=== PATIENT | male | born 1940 | race Caucasian/White ===

== ENCOUNTER → 2017-02-09 | Outpatient (CLI) | payer OTHER ==
[~2017-02-09] MED LIST: ALLOPURINOL 10100 M1 PO; ATORVASTATIN CA40 MG PO; FENOFIBRIC ACI135 MG PO; LEVOTHYROXINE0.05 MG PO; METOPROLOL SUCC50 MG PO; NORCO 5-325 TA1 EACH PO; PACERONE 200 M200 MG PO; TOPROL XL50 MG PO; VIAGRA100 MG PO
== END ==
LOC: CAT 12:39
DX: I25.10 Atherosclerotic heart disease of native coronary artery without angina pectoris (principal); R91.1 Solitary pulmonary nodule; R91.8 Other nonspecific abnormal finding of lung field; R93.8 Abnormal findings on diagnostic imaging of other specified body structures

== ENCOUNTER → 2017-04-18 | Outpatient (CLI) | payer OTHER | LOC: HYPER 08:55 | DX: S81.802A Unspecified open wound, left lower leg, initial encounter (principal); E78.5 Hyperlipidemia, unspecified; I10 Essential (primary) hypertension; M10.9 Gout, unspecified; Z87.01 Personal history of pneumonia (recurrent); Z85.46 Personal history of malignant neoplasm of prostate; Z86.73 Personal history of transient ischemic attack (TIA), and cerebral infarction without residual deficits; Z95.0 Presence of cardiac pacemaker; Z95.1 Presence of aortocoronary bypass graft; Z87.891 Personal history of nicotine dependence; Z72.89 Other problems related to lifestyle; X58.XXXA Exposure to other specified factors, initial encounter; Y93.89 Activity, other specified; Y92.89 Other specified places as the place of occurrence of the external cause; Y99.8 Other external cause status ==

== ENCOUNTER 2017-04-22 12:19 | Inpatient (IN) | payer OTHER ==
[~2017-04-22] VITALS: Ht 180.3 cm; Wt 64.4 kg
--- NOTE | ~2017-04-22 | D ---
[facility] [place] [address] DISCHARGE SUMMARY Name: GRAHAM FRIAS Room #: 542-P DIS IN M.R.#: [id number] Admission: 04/22/17 Attend Phys: Jordan Pena MD Discharge: 04/23/17 Date of : 42 Report #: [id number] THIS REPORT FOR: //name// CC: Jordan Ramírez DATE OF SERVICE: 04/23/2017 The patient is admitted to the hospital on 04/22/2017 and discharged from the hospital on 04/23/2017. HISTORY OF PRESENT ILLNESS: The patient is a 76-year-old man with history of atrial fibrillation, on chronic anticoagulation, who sustained right leg hematoma. He was treated as an outpatient, but he did not get better. Please refer to the admission H and P for details. HOSPITALIZATION COURSE: The patient was hospitalized at [facility]. He was seen by a surgeon, and he had incision and drainage. After procedure, he did well. His white count on admission was 15.9, and today, it is 11.1. The patient feels well, and has no complaints. Case was discussed with infectious disease specialist. The patient can be treated with oral antibiotics, and wound cultures can be followed as an outpatient at wound care clinic. Currently, the patient's condition is stable and acceptable, as documented in the patient's chart. DISCHARGE DIAGNOSIS: Left leg hematoma and cellulitis, as a result of injury. Status post I and D on 04/22/2017. Clinically much better. SECONDARY DIAGNOSES: Include atrial fibrillation, status post pacemaker placement, coronary artery disease, hypertension, gout, hypothyroidism. DISCHARGE MEDICATIONS: Same as preadmission medications. Please refer to the medication reconciliation list. In addition, the patient will hold Eliquis for 10 days per manufacturing development engineer's recommendation, and he will take 10 days of Keflex. DISCHARGE INSTRUCTIONS: Wound care per general surgeon's and wound care team recommendations. FOLLOWUP PLAN: [facility] [address] [place] [address] DISCHARGE SUMMARY Name: GRAHAM FRIAS DUNLOW Room #: 542-P [facility]#: [id number] Admission: 04/22/17 Attend Phys: Jordan Pena MD Discharge: 04/23/17 Date of : 42 Report #: [id number] 1. Follow up in the Wound Care Clinic as advised. 2. Follow up with the primary care physician and manufacturing development engineer as planned. <ELECTRONICALLY SIGNED> By: Conor Solis MD 04/25/17 1807 1055 1229 Conor Solis MD /nt
--- NOTE | ~2017-04-22 | S ---
[facility] [place] [address] SURGICAL PATH RPT PROCEDURE Name: PRAKASH PIZANO Room #: 542-P DIS IN M.R.#: [id number] Admission: 04/22/17 Date of : 42 Discharge: 04/23/17 Report #: [id number] Path Case #: [id number] PATHOLOGY REPORT COLLECTION DATE: 04/22/2017 RECEIVED DATE: 04/23/2017 SUBMITTING PHYS: Dr. Amadou Ramos OTHER PHYS: Dr. Jordan Ramírez SPECIMEN(S) RECEIVED: A.Hematoma skin and subcutaneous tissue * * * * * * * * * * * * FINAL DIAGNOSIS: Clotted blood, skin and underlying subcutaneous tissue "hematoma, skin and subcutaneous tissue", excision: - Skin with epidermal necrosis and underlying hematoma with recent and remote hemorrhage. - There is no evidence of malignancy. PATHOLOGIST: Carlos Aguilar M.D. REPORT ELECTRONICALLY SIGNED BY: Carlos Aguilar M.D. DATE/TIME: 04/25/2017 12:24 * * * * * * * * * * * * GROSS PATHOLOGY: The specimen is received in formalin labeled "Prakash Pizano, hematoma skin and subcutaneous tissue". Received is a segment of red-patiño black, firm soft tissue with possible attached skin measuring 4.3 x 4.0 x 0.5 cm in greatest dimensions. The specimen is submitted representatively in cassette A1. (CAA; 04/24/2017) CLINICAL HISTORY: Left leg wound INITIAL CPT CODE(S): A; 70654 Professional services performed by [facility] at [facility] [address] [place] [address] Technical services performed by [facility] at [address] [place] [address]. [facility] [address] [place] [address] SURGICAL PATH RPT PROCEDURE Name: PRAKASH PIZANO JADYN Room #: 542-P DIS IN M.R.#: [id number] Admission: 04/22/17 Date of : 42 Discharge: 04/23/17 Report #: [id number] Path Case #: [id number] [facility] [address] [address] PHONE: [phone] DIRECTOR: Jose Angel Rivera M.D. * * * END OF REPORT * * *
--- NOTE | ~2017-04-22 | HC ---
[facility] [place] [address] CONSULTATION Name: GRAHAM FRIAS Room #: 542-P [facility] IN M.R.#: [id number] Admission: 04/22/17 Attend Phys: Jordan Pena MD Discharge: 04/23/17 Date of : 42 Report #: [id number] THIS REPORT FOR: //name// CC: Jordan Ramírez REASON FOR VISIT: Paroxysmal ventricular tachycardia. HISTORY OF PRESENT ILLNESS: The patient is a nice gentleman with a moderate ischemic cardiomyopathy with remote bypass surgery with a left internal mammary to the LAD, right internal mammary to the marginal branch and a vein graft to the posterior descending. His history is complicated and includes squamous cell carcinoma of the tongue for which he underwent definitive chemotherapy and radiation therapy. He also has a history of symptomatic sustained monomorphic ventricular tachycardia for which he underwent AICD placement and has been maintained on beta blockade and low dose amiodarone. He has had paroxysms of atrial fibrillation, which have remained asymptomatic and has been on apixaban. Last Sunday, he was helping a friend repair a door and this fell on his leg, creating a laceration and hematoma. He was seen in the office on Sunday where the hematoma was evacuated. He then presented on Sunday with increasing pain and erythema around the site. He underwent further incision and drainage yesterday. He denies chest pain, pressure or ischemic type symptoms. There have been no symptoms to suggest ICD discharge. His Eliquis has been put on hold. MEDICATIONS: Include amiodarone 200 mg daily, Toprol-XL 50 mg daily, atorvastatin 40 mg daily, levothyroxine 0.05 mg daily, allopurinol 100 mg daily. PAST MEDICAL HISTORY: Medical records have been reviewed and include a history of cleft palate, ankle surgery, bypass surgery in 2000, sustained monomorphic ventricular tachycardia, COPD with prior tobacco dependency. SOCIAL HISTORY: He is . He is a former smoker. His is undergoing treatment for a recently identified melanoma. FAMILY HISTORY: Notable for premature coronary disease. REVIEW OF SYSTEMS: All systems negative except as that noted above. PHYSICAL EXAMINATION: GENERAL: A pleasant gentleman who is alert and in no distress. VITAL SIGNS: Blood pressure is 130/55, heart rate is 60 and regular. He is afebrile. HEENT: There are neither xanthelasma, subcutaneous xanthomata, oral mucosal or digital cyanosis or kyphoscoliosis present. CHEST: Clear to auscultation and percussion. CARDIOVASCULAR: Regular rate and rhythm with normal S1, S2. [address] [address] CONSULTATION Name: GRAHAM FRIAS Room #: 542-P [facility] IN M.R.#: [id number] Admission: 04/22/17 Attend Phys: Jordan Pena MD Discharge: 04/23/17 Date of : 42 Report #: [id number] ABDOMEN: Soft and nontender. EXTREMITIES: Reveal a left leg hematoma with surrounding cellulitis. NEUROLOGIC: He is alert with a nonfocal exam. LABORATORY DATA: Sodium is 139, potassium is 3.8, creatinine is 0.7. White count 11.1, hemoglobin 9.8, hematocrit 29 and platelet count 270. RADIOLOGICAL DATA: Chest x-ray is normal. Lower extremity arterial Doppler demonstrates mild diffuse left SFA atherosclerotic disease. IMPRESSION: 1. Left leg traumatic injury with hematoma and overlying cellulitis. 2. Moderate ischemic cardiomyopathy. 3. History of paroxysmal ventricular tachycardia with prior ICD therapy. 4. Paroxysmal atrial fibrillation. 5. Moderate carotid disease. 6. Tongue cancer with prior definitive chemotherapy and radiation therapy. 7. History of prostate cancer. RECOMMENDATIONS: 1. Discontinue Eliquis, probably for several weeks until leg wound heals. 2. ID consultation has been ordered. 3. Resume usual cardiovascular medicines. I have discussed these issues with the patient and his . Thank you for asking me to participate in his care. <ELECTRONICALLY SIGNED> By: Paramjit Coronado MD, FACC 04/26/17 0831 0809 0857 Paramjit Coronado MD, FACC /nt
--- NOTE | ~2017-04-22 | HC ---
[facility] [place] [address] CONSULTATION Name: GRAHAM FRIAS Room #: 542-P [facility] IN M.R.#: [id number] Admission: 04/22/17 Attend Phys: Jordan Pena MD Discharge: 04/23/17 Date of : 42 Report #: [id number] THIS REPORT FOR: //name// CC: Jordan Ramírez DATE OF SERVICE: 04/23/2017 CHIEF COMPLAINT: Surgical wound to the right lower leg following evacuation and debridement of a subcutaneous hematoma. HISTORY OF PRESENT ILLNESS: The patient is a 76-year-old male patient with whom I am familiar from previous outpatient evaluation. He sustained an injury to his left lower extremity after slipping on some steps. He currently is taking Eliquis. He presented to the wound clinic. We saw him, he had a very large tense hematoma. Incision and drainage procedure was performed where a large amount of clot was evacuated. He was sent home with local wound care. Unfortunately, developed some necrosis along the wound edges and increasing redness and pain, presented to the Emergency Department for evaluation and treatment, was noted to have cellulitis of the lower extremity. He was admitted to the hospital for intravenous antibiotic therapy and did undergo surgical debridement by Dr. Amadou Ramos. He is resting comfortably in his room. He does note that he needs to leave the hospital as soon as possible due to the fact that his is undergoing a surgical procedure. The patient's Eliquis at this time has been held. MEDICATIONS: Include amiodarone, metoprolol, hydrocodone, atorvastatin, levothyroxine, allopurinol, Eliquis. PAST MEDICAL HISTORY: Positive for history of ischemic cardiomyopathy with remote bypass surgery, history of paroxysmal ventricular tachycardia. He has an implanted AICD. FAMILY HISTORY: Notable for premature coronary artery disease. SOCIAL HISTORY: He is . He is a former smoker. REVIEW OF SYSTEMS: Negative except that as mentioned above in the history of present illness. PHYSICAL EXAMINATION: VITAL SIGNS: At this time include pulse 72, temperature 97.9, respiration of 20, blood pressure 130/62. GENERAL: This is a somewhat thin-appearing male patient who appears to be in no distress. HEENT: Normocephalic. Nodes were clear. [address] [address] CONSULTATION Name: GRAHAM FRIAS Room #: 542-P [facility] IN M.R.#: [id number] Admission: 04/22/17 Attend Phys: Jordan Pena MD Discharge: 04/23/17 Date of : 42 Report #: [id number] NECK: Supple. LUNGS: Clear. ABDOMEN: Soft. EXTREMITIES: Demonstrate erythema involving the left lower leg below the knee. Edema, however, is improved since having seen him in the office. The surgical wound is relatively clean. There is still some oozing. Otherwise, the bases shows some evidence of granulation tissue, does not appear to be any retained hematoma at this time. CLINICAL IMPRESSION: 1. Surgical wound, left lower extremity following evacuation and debridement of a left lower extremity hematoma. 2. History of coronary artery disease with automatic implantable cardioverter-defibrillator. 3. Cellulitis, left lower extremity. RECOMMENDATIONS: At this point in time, the patient will be continued on intravenous antibiotic therapy here. He feels that it is urgent, however, that he leave the hospital within the next day in order to be present for his 's surgery. We will recommend a moist gauze dressing at this point in time. Instructions have been provided to him and his . I do appreciate being asked to see the patient in consultation. <ELECTRONICALLY SIGNED> By: Henrik Eden MD 04/24/17 1804 1143 1757 Henrik Eden MD /nt
--- NOTE | ~2017-04-22 | O ---
[facility] [place] [address] OPERATIVE REPORT Name: GRAHAM FRIAS Room #: 542-P ADM IN M.R.#: [id number] Admission: 04/22/17 Attend Phys: Jordan Pena MD Discharge: Date of : 42 Report #: [id number] THIS REPORT FOR: //name// CC: Jordan Ramírez DATE OF SERVICE: 04/22/2017 DATE OF SERVICE: 04/22/2017. PREOPERATIVE DIAGNOSES: Contusion of left leg with hematoma and cellulitis. POSTOPERATIVE DIAGNOSES: Contusion of left leg with hematoma and cellulitis. PROCEDURE: Incision and drainage with evacuation of hematoma, left anterior calf; wound cultures. BUSINESS ASSOCIATE: Amadou Ramos MD ANESTHESIA: General sedation, local 1% lidocaine with epinephrine injection, local Marcaine 0.5% with epinephrine injection. INDICATION The patient is a 76-year-old gentleman who 6 days ago, sustained blunt trauma to his leg. He is on Eliquis. He developed a hematoma with pressure. He was seen in the wound care center at [facility] by Dr. Eden, and hematoma was incised, partially evacuated. The patient had increasing pain, tenderness, swelling and some redness, and was admitted to the emergency room. The area around the hematoma appeared somewhat cellulitic and the surface of the hematoma was dry, hard and crusted. Informed consent was obtained for incision and drainage and evacuation of the hematoma. PROCEDURE DESCRIPTION: The patient in the supine position on the operating table. Smooth induction of intravenous sedation anesthesia. Left leg was sterilely prepared and draped in the usual fashion. Lidocaine 1% with epinephrine locally injected for pain control. Using a 15 blade scalpel, the hard crusted surface of the hematoma was incised at its border with viable skin. The hard crusted surface of the hematoma was excised. Wound cultures were taken from the central hematoma. Hematoma was organizing and was quite firm. A good amount of the hematoma was removed to the point where the wound had a depth of 1.5 cm. The entire wound measured 4.5 x 3.5 cm. Hemostasis was complete. Hematoma was removed to the point where bleeding might be encountered. The deeper portion of the hematoma appeared uninfected. There was no evidence of pus or purulence. Wound was irrigated. Wound was packed with sterile saline gauze. [address] [address] OPERATIVE REPORT Name: GRAHAM FRIAS IDA Room #: 542-P [facility] IN M.R.#: [id number] Admission: 04/22/17 Attend Phys: Jordan Pena MD Discharge: Date of : 42 Report #: [id number] The patient . Continue IV antibiotics, Ancef. Maybe a candidate for wound VAC dressing once cellulitis has resolved. By: 1752 0041 Amadou Ramos MD /nt
--- NOTE | ~2017-04-22 | HC ---
[facility] [place] [address] CONSULTATION Name: GRAHAM FRIAS Room #: 542-P [facility] IN M.R.#: [id number] Admission: 04/22/17 Attend Phys: Jordan Pena MD Discharge: 04/23/17 Date of : 42 Report #: [id number] THIS REPORT FOR: //name// CC: Jordan Ramírez DATE OF SERVICE: 04/23/2017 REASON FOR CONSULTATION: I was asked to evaluate concerning left calf hematoma and associated cellulitis with a history of left fibular fracture status post ORIF about a year ago with plate on the left lower leg. HISTORY OF PRESENT ILLNESS: A week ago, he suffered blunt trauma to the left leg when he was working on a home repair; dorsally down his calf. Subsequent large hematoma. Seen by Dr. Eden earlier last week where he diagnosed a hematoma. This was incised and partially drained on 04/18/2017. Subsequently, developed increased erythema. Hospitalized and was taken to the operating room by Dr. Ramos where evacuation of hematoma was performed. Cultures remain pending. The surgery was yesterday. Treated with IV antibiotics postoperatively. He is afebrile and hemodynamically stable. He feels well with minimal discomfort. ALLERGIES: None known. MEDICATIONS: As noted on his MAR, which were reviewed. PAST MEDICAL HISTORY: Hypertension, permanent pacemaker defibrillator, carcinoma in the base of the tongue, fractured left tibia and left ankle, coronary artery disease, coronary artery bypass grafting. REVIEW OF SYSTEMS: No cardiopulmonary, GI or complaints. FAMILY HISTORY AND SOCIAL HISTORY: Otherwise, noncontributory. The patient was on anticoagulation at the time of his injury. This has subsequently been held. PHYSICAL EXAMINATION: VITAL SIGNS: He is afebrile, hemodynamically stable. GENERAL: He is alert and cooperative and pleasant, in no acute distress. LUNGS: Decreased breath sounds posteriorly. HEART: Regular without murmur. ABDOMEN: Soft, nontender, no hepatosplenomegaly or mass. EXTREMITIES: Left lower extremity has a left lower leg ecchymosis, fairly large incision on the lateral calf region, which was packed. Mild surrounding erythema. 1+ edema in the lower leg. Pulses in the foot were adequate. Sensation in the foot was adequate. [address] [address] CONSULTATION Name: GRAHAM FRIAS Room #: 542-P [facility] IN .R.#: [id number] Admission: 04/22/17 Attend Phys: Jordan Pena MD Discharge: 04/23/17 Date of : 42 Report #: [id number] LABORATORY STUDIES: Blood cultures are negative to date. I am awaiting cultures of his wound. Hemoglobin 9.8, WBC 11, platelet count 270,000. Sodium 139, potassium 3.8, bicarbonate of 27, creatinine 0.7. Arterial studies of left lower leg shows mild left SFA atherosclerosis. IMPRESSION: A 76-year-old with left calf hematoma, surrounding erythema, suspect much of this is reactive in nature. He does have underlying hardware in the fibula, but the hematoma was above the fascial planes in the soft tissues. PLAN: Would recommend continuing dressing change, leg elevation, holding his anticoagulation and will continue cephalexin for the next 7-10 days, as he follows up with wound care. I discussed the dressing change, compression and elevation with the patient and his . <ELECTRONICALLY SIGNED> By: Karan Fofana MD 04/25/17 0905 1053 1632 Karan Fofana MD /nt
--- NOTE | ~2017-04-22 | HC ---
[facility] [place] [address] CONSULTATION Name: GRAHAM FRIAS Room #: 542-P ADM IN M.R.#: [id number] Admission: 04/22/17 Attend Phys: Jordan Pena MD Discharge: Date of : 42 Report #: [id number] THIS REPORT FOR: //name// CC: Jordan Ramírez DATE OF SERVICE: 04/22/2017 WOUND CARE CONSULTATION REASON FOR CONSULTATION: Hematoma of left leg with pain and cellulitis. HISTORY: The patient is a 76-year-old gentleman who has a history of cerebrovascular accident. He is on Eliquis. He has a history of cardiac arrhythmias and has an implanted pacemaker. He has a history of cancer at the base of the tongue with surgical resection, possible radiation therapy. He also has a history of left fibula fracture 20 years ago and then 1 year ago left tibia fracture repaired by Dr. Con Clarke. The patient approximately 6 or 7 days ago sustained blunt trauma to his left leg when he was doing some work and a door of artificial wood hit his left leg. There was no break of the skin; however, the patient had a large lump or hematoma under the skin. The patient was seen in [facility] by Dr. Henrik Eden on 04/18/2017 and the hematoma was incised and partially drained. The patient had some pain and discomfort 48 hours later. The patient had a call in to Dr. Peterson on Sunday; however, he did not return Dr. Peterson' call. The patient experienced some increasing pain, swelling, redness and tenderness of the left leg, prompting him to come to the Emergency Room at [facility] today, where he was seen by the Emergency physician, Dr. Estrella. The patient was admitted to the hospitalist service on IV antibiotics, clindamycin. Wound care is now consulted. PAST MEDICAL HISTORY: 1. Hypertension. 2. The patient is nondiabetic. 3. History of cardiac arrhythmia with pacemaker. 4. History of carcinoma at the base of the tongue treated surgically. 5. History of fracture of the left tibia 1 year ago, repaired with surgical hardware by Dr. Clarke. 6. Coronary artery disease. PAST SURGICAL HISTORY: Coronary artery bypass grafting in 2000, [facility]. REVIEW OF SYSTEMS: He does have some pain with walking in the left leg. ALLERGIES: No known drug allergies. [address] [address] CONSULTATION Name: GRAHAM FRIAS Room #: 542-P [facility] IN .R.#: [id number] Admission: 04/22/17 Attend Phys: Jordan Pena MD Discharge: Date of : 42 Report #: [id number] HOME MEDICATIONS: Pacerone 200 mg 2 tablets p.o. twice a day, metoprolol 50 mg daily, hydrocodone, atorvastatin 40 mg daily, levothyroxine 0.05 mg daily, choline and allopurinol. PHYSICAL EXAMINATION: GENERAL: Shows a thin elderly gentleman who is alert and conversant. He does not appear septic. VITAL SIGNS: Temperature 37.5, pulse 77, respirations 18 and blood pressure 95/52. HEENT: Mucous membranes are moist. The patient has had head and neck surgery. LUNGS: Respirations are unlabored. ABDOMEN: Soft. EXTREMITIES: Exam showed a dark black discolored hematoma with incision and drainage site over the left mid lateral pretibial calf. There is edema of the left calf and mild surrounding erythema and generalized ecchymosis above and below the hematoma. Hematoma appears dry and crusted and tense. The area is tender. There is no obvious fluctuance. LABORATORY DATA: White blood count 15.9, hemoglobin 11.3 and hematocrit 33.8. Electrolytes: Sodium 135. Creatinine 0.9. IMPRESSION: 1. History of coronary artery disease, status post coronary bypass graft. 2. History of cerebrovascular accident. 3. History of arrhythmia with implanted pacemaker. 4. History of left tib-fib fracture with hardware. 5. Contusion with hematoma of the left calf with secondary cellulitis, possible infection. 6. Anticoagulation with Eliquis. PLAN: The patient has received intravenous clindamycin. We will start him on intravenous Ancef. The patient will be taken to the operating room today for incision and drainage and evacuation of the hematoma with excision of any nonviable skin or subcutaneous tissue. This would release the pressure and the hematoma allowed to drain. Cultures will be taken. The patient will remain hospitalized on IV antibiotics. By: 1645 0100 Amadou Ramos MD /nt
[2017-04-22 12:37] VITALS: BP 95/52
[2017-04-22 14:40] VITALS: BP 188/76
[2017-04-22 14:52] LABS: HEMATOCRIT 33.8 % (42.0-52.0); HEMOGLOBIN 11.3 gm/dL (14.0-18.0); MCH 31.3 pg (26.0-34.0); MCHC 33.4 g/dL (28.0-37.0); MCV 93.9 fL (80.0-100.0); PLATELET COUNT 295 thou/uL (150-400); RDW 13.6 % (10.5-14.5); WBC 15.9 thou/uL (4.0-11.0)
[2017-04-22 14:53] LABS: MANUAL DIFF YES
[2017-04-22 15:02] LABS: CALCIUM 9.1 mg/dL (8.5-10.1); CREATININE 0.9 mg/dL (0.7-1.3); POTASSIUM 4.8 mmol/L (3.5-5.1)
[2017-04-22 15:18] LABS: ALBUMIN 3.1 g/dL (3.4-5.0); TOTAL BILIRUBIN 0.9 mg/dL (<0.1-1.0); TOTAL PROTEIN 7.5 g/dL (6.4-8.2)
[2017-04-22 15:23] LABS: ABSOLUTE NEUTROPHILS 13.5 thou/uL (1.4-8.2); TOTAL CELL COUNT 100
[2017-04-22 15:40] VITALS: BP 171/70
[2017-04-22 19:30] VITALS: BP 166/62
[2017-04-22 20:00] VITALS: BP 160/62
[2017-04-22 23:40] VITALS: BP 134/55
[2017-04-23 04:21] LABS: HEMATOCRIT 29.7 % (42.0-52.0); HEMOGLOBIN 9.8 gm/dL (14.0-18.0); MCH 31.2 pg (26.0-34.0); MCV 94.3 fL (80.0-100.0); PLATELET COUNT 270 thou/uL (150-400); RBC 3.15 mil/uL (4.50-6.00); RDW 13.9 % (10.5-14.5); WBC 11.1 thou/uL (4.0-11.0)
[2017-04-23 04:25] LABS: MANUAL DIFF YES
[2017-04-23 05:28] LABS: CALCIUM 8.2 mg/dL (8.5-10.1); CREATININE 0.7 mg/dL (0.7-1.3)
[2017-04-23 05:29] LABS: POTASSIUM 3.8 mmol/L (3.5-5.1)
[2017-04-23 07:40] VITALS: BP 130/62
[2017-04-23 08:10] LABS: ABSOLUTE NEUTROPHILS 7.5 thou/uL (1.4-8.2); TOTAL CELL COUNT 100
[2017-04-23 08:11] LABS: ANISOCYTOSIS SLIGHT; POLYCHROMASIA OCCASIONAL
[2017-04-23] MEDS ORDERED: NORCO 5-325 TA1 EACH PO (10:58)
[2017-04-23] MEDS ORDERED: PACERONE 200 M200 M1 PO (10:58)
[2017-04-23] MEDS ORDERED: KEFLEX500 MG PO (10:58)
[2017-04-23 11:52] LABS: URINE BILIRUBIN NEGATIVE (Negative); URINE BLOOD NEGATIVE (Negative); URINE COLOR YELLOW; URINE GLUCOSE-RANDOM* NEGATIVE (Negative); URINE KETONES NEGATIVE (Negative); URINE LEUKOCYTES-REFLEX NEGATIVE (Negative); URINE PROTEIN (DIPSTICK) NEGATIVE (Negative); URINE SPECIFIC GRAVITY <= 1.005 (1.003-1.035)
[2017-04-23 14:17] VITALS: BP 130/62
== END 2017-04-23 15:25 | disposition home or self-care (01) | DRG 571 ==
LOC: ER 12:19 → 5S 14:32 → EROBS 14:34 → 5S 15:13
PROVIDERS: Emergency Medicine; Internal Medicine Endocrinology, Diabetes & Metabolism
PROC: 0JBP0ZZ Excision of Left Lower Leg Subcutaneous Tissue and Fascia, Open Approach (ICD-10-PCS; principal; 2017-04-22)
PROC: 0Y9H3ZZ Drainage of Right Lower Leg, Percutaneous Approach (ICD-10-PCS; principal; 2017-04-22)
DX: L03.116 Cellulitis of left lower limb (principal); D68.9 Coagulation defect, unspecified; S80.12XA Contusion of left lower leg, initial encounter; I25.10 Atherosclerotic heart disease of native coronary artery without angina pectoris; J44.9 Chronic obstructive pulmonary disease, unspecified; I10 Essential (primary) hypertension; I25.5 Ischemic cardiomyopathy; I48.0 Paroxysmal atrial fibrillation; E03.9 Hypothyroidism, unspecified; M10.9 Gout, unspecified; X58.XXXA Exposure to other specified factors, initial encounter; C02.9 Malignant neoplasm of tongue, unspecified; Z85.46 Personal history of malignant neoplasm of prostate; Z86.73 Personal history of transient ischemic attack (TIA), and cerebral infarction without residual deficits; Z79.899 Other long term (current) drug therapy; Z79.01 Long term (current) use of anticoagulants; Z95.1 Presence of aortocoronary bypass graft; Z87.81 Personal history of (healed) traumatic fracture; Z87.891 Personal history of nicotine dependence; Z95.810 Presence of automatic (implantable) cardiac defibrillator; Y93.89 Activity, other specified; Y92.89 Other specified places as the place of occurrence of the external cause; Y99.8 Other external cause status
CPT/HCPCS: 10785; 50010; 50101; 50386; 50404; 51636; 62110; 62850; 70005

== ENCOUNTER → 2017-04-26 | Outpatient (CLI) | payer OTHER ==
[~2017-04-26] MED LIST changes: +KEFLEX500 MG PO; +PACERONE 200 M200 M1 PO
== END ==
LOC: HYPER 06:59
DX: S81.802D Unspecified open wound, left lower leg, subsequent encounter (principal); I10 Essential (primary) hypertension; E78.5 Hyperlipidemia, unspecified; Z86.73 Personal history of transient ischemic attack (TIA), and cerebral infarction without residual deficits; Z85.46 Personal history of malignant neoplasm of prostate; Z87.891 Personal history of nicotine dependence; Z72.89 Other problems related to lifestyle; X58.XXXD Exposure to other specified factors, subsequent encounter

== ENCOUNTER → 2017-05-03 | Outpatient (CLI) | payer OTHER | LOC: HYPER 07:15 | DX: S81.802D Unspecified open wound, left lower leg, subsequent encounter (principal); R60.0 Localized edema; E78.5 Hyperlipidemia, unspecified; I10 Essential (primary) hypertension; Z86.73 Personal history of transient ischemic attack (TIA), and cerebral infarction without residual deficits; Z85.46 Personal history of malignant neoplasm of prostate; Z87.891 Personal history of nicotine dependence; Z72.89 Other problems related to lifestyle; Z95.1 Presence of aortocoronary bypass graft; Z95.0 Presence of cardiac pacemaker; X58.XXXD Exposure to other specified factors, subsequent encounter ==

== ENCOUNTER → 2017-05-10 | Outpatient (CLI) | payer OTHER | LOC: HYPER 07:08 | DX: S81.802D Unspecified open wound, left lower leg, subsequent encounter (principal); E78.5 Hyperlipidemia, unspecified; I10 Essential (primary) hypertension; Z87.01 Personal history of pneumonia (recurrent); Z85.46 Personal history of malignant neoplasm of prostate; Z86.73 Personal history of transient ischemic attack (TIA), and cerebral infarction without residual deficits; Z95.1 Presence of aortocoronary bypass graft; Z95.0 Presence of cardiac pacemaker; Z87.891 Personal history of nicotine dependence; Z72.89 Other problems related to lifestyle; X58.XXXD Exposure to other specified factors, subsequent encounter ==

== ENCOUNTER → 2017-05-17 | Outpatient (CLI) | payer OTHER | LOC: HYPER 05-14 12:54 | DX: S81.802D Unspecified open wound, left lower leg, subsequent encounter (principal); E78.5 Hyperlipidemia, unspecified; I10 Essential (primary) hypertension; Z87.01 Personal history of pneumonia (recurrent); Z85.46 Personal history of malignant neoplasm of prostate; Z86.73 Personal history of transient ischemic attack (TIA), and cerebral infarction without residual deficits; Z95.0 Presence of cardiac pacemaker; Z95.1 Presence of aortocoronary bypass graft; Z87.891 Personal history of nicotine dependence; Z72.89 Other problems related to lifestyle; X58.XXXD Exposure to other specified factors, subsequent encounter ==

== ENCOUNTER → 2017-05-24 | Outpatient (CLI) | payer OTHER | LOC: HYPER 07:05 | DX: S81.802D Unspecified open wound, left lower leg, subsequent encounter (principal); R60.0 Localized edema; E78.5 Hyperlipidemia, unspecified; I10 Essential (primary) hypertension; M10.9 Gout, unspecified; Z85.46 Personal history of malignant neoplasm of prostate; Z86.73 Personal history of transient ischemic attack (TIA), and cerebral infarction without residual deficits; Z95.0 Presence of cardiac pacemaker; Z95.1 Presence of aortocoronary bypass graft; Z87.891 Personal history of nicotine dependence; Z72.89 Other problems related to lifestyle; X58.XXXD Exposure to other specified factors, subsequent encounter ==

== ENCOUNTER → 2017-05-31 | Outpatient (CLI) | payer OTHER | LOC: HYPER 06:58 | DX: S81.802D Unspecified open wound, left lower leg, subsequent encounter (principal); R60.0 Localized edema; E78.5 Hyperlipidemia, unspecified; I10 Essential (primary) hypertension; M10.9 Gout, unspecified; Z86.73 Personal history of transient ischemic attack (TIA), and cerebral infarction without residual deficits; Z85.46 Personal history of malignant neoplasm of prostate; Z87.891 Personal history of nicotine dependence; Z72.89 Other problems related to lifestyle; Z95.0 Presence of cardiac pacemaker; Z95.1 Presence of aortocoronary bypass graft; X58.XXXD Exposure to other specified factors, subsequent encounter ==

== ENCOUNTER → 2017-06-14 | Outpatient (CLI) | payer OTHER | LOC: HYPER 07:03 | DX: S81.802D Unspecified open wound, left lower leg, subsequent encounter (principal); E78.5 Hyperlipidemia, unspecified; I10 Essential (primary) hypertension; Z87.01 Personal history of pneumonia (recurrent); Z85.46 Personal history of malignant neoplasm of prostate; Z86.73 Personal history of transient ischemic attack (TIA), and cerebral infarction without residual deficits; Z95.1 Presence of aortocoronary bypass graft; Z95.0 Presence of cardiac pacemaker; Z87.891 Personal history of nicotine dependence; Z72.89 Other problems related to lifestyle; X58.XXXD Exposure to other specified factors, subsequent encounter ==

== ENCOUNTER → 2017-06-28 | Outpatient (CLI) | payer OTHER | LOC: HYPER 07:00 | DX: S81.802D Unspecified open wound, left lower leg, subsequent encounter (principal); L03.116 Cellulitis of left lower limb; E78.5 Hyperlipidemia, unspecified; I10 Essential (primary) hypertension; M10.9 Gout, unspecified; Z85.46 Personal history of malignant neoplasm of prostate; Z86.73 Personal history of transient ischemic attack (TIA), and cerebral infarction without residual deficits; Z95.0 Presence of cardiac pacemaker; Z87.01 Personal history of pneumonia (recurrent); Z95.1 Presence of aortocoronary bypass graft; Z87.891 Personal history of nicotine dependence; Z72.89 Other problems related to lifestyle; X58.XXXD Exposure to other specified factors, subsequent encounter ==

== ENCOUNTER → 2017-08-03 | Outpatient (CLI) | payer OTHER | LOC: RAD 07:55 | DX: I48.91 Unspecified atrial fibrillation (principal) ==

== ENCOUNTER 2018-03-04 08:54 | Inpatient (IN) | payer OTHER ==
[~2018-03-04] VITALS: Ht 152.4 cm; Wt 66.7 kg
--- NOTE | ~2018-03-04 | EKG ---
[place] [address] [facility] [employer] [place] [address] ELECTROCARDIOGRAM REPORT Name: GRAHAM FRIAS Room #: 456-P ADM IN M.R.#: [id number] Admission: 03/04/18 Attend Phys: Ti Syed MD Discharge: Date of : 42 Report #: [id number] THIS REPORT FOR: //name// [facility] ED Test Date: 2018-03-04 Test Time: 09:34:12 Pat Name: GRAHAM FRIAS Department: Room: [facility] Gender: M Advertising Coordinator: [place] : 1940 Requested By: Bertha Zaarte Order Number: [id number] MD: Paramjit Coronado Measurements Intervals Newcomb Rate: 63 P: 19 MT: 222 QRS: 51 QRSD: 177 T: 17 QT: 471 QTc: 483 Interpretive Statements Sinus rhythm Prolonged MT interval Probable left atrial enlargement Right bundle branch block Compared to ECG 04/13/2016 06:07:09 PVCs are no longer present Electronically Signed On 03-05-2018 9:00:55 CDT by Paramjit Coronado [email or web address] <ELECTRONICALLY SIGNED> By: Paramjit Coronado MD, [facility] 03/05/1800 3 Paramjit Coronado MD, [facility] /EPI
--- NOTE | ~2018-03-04 | HC ---
[facility] [place] [address] CONSULTATION Name: GRAHAM FRIAS Room #: 456-P [facility] IN M.R.#: [id number] Admission: 03/04/18 Attend Phys: Ti Syed MD Discharge: 03/07/18 Date of : 44 Report #: [id number] THIS REPORT FOR: //name// CC: Ti Ramírez REASON FOR CONSULTATION: I was asked to evaluate concerning leukocytosis. HISTORY OF PRESENT ILLNESS: The patient is a 77-year-old with history of previous stroke, throat cancer, prostate cancer, who is on 2 liters of oxygen per nasal cannula, mostly at night, who had the acute onset of fever, chills, and shortness of breath. No significant cough, chest pain, or hemoptysis. He was seen 12 hours later in the outpatient clinic with an O2 saturations in the 80s and hypotension. He was hospitalized for further evaluation. White count was elevated to 26,000. His lactate was 2.2. Chest x-ray had shown basilar infiltrates. He was treated with Levaquin, azithromycin, ceftriaxone on admission and Levaquin was continued. He was also placed on corticosteroids with methylprednisolone 40 mg b.i.d. White count initially dropped to 14,000, but then went up to 29,000. No further fever, chills or sweats. No cough. Overall, he feels much improved over the last 24-48 hours. He had a video swallow, which was positive for aspiration. CT scan of the chest shows patchy atelectasis and pneumonitis in the lower lobes bilaterally. REVIEW OF SYSTEMS: Notes no rash, arthritis, headache, pharyngitis, nausea, vomiting, diarrhea, dysuria, or frequency. ALLERGIES: None known. MEDICATIONS: As noted on his MAR. 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 FAMILY HISTORY: Noncontributory. SOCIAL HISTORY: Past smoker, moderate alcohol intake. PHYSICAL EXAMINATION: VITAL SIGNS: He is afebrile, hemodynamically stable. GENERAL: He is alert, cooperative and pleasant, in no acute distress. HEENT: Unremarkable. NECK: Supple. LUNGS: Few crackles in the bases bilaterally, no consolidation, no rub. HEART: Regular, without murmur. ABDOMEN: Soft, nontender, no hepatosplenomegaly or mass. [address] [address] CONSULTATION Name: GRAHAM FRIAS Room #: 456-P [facility] IN M.R.#: [id number] Admission: 03/04/18 Attend Phys: Ti Syed MD Discharge: 03/07/18 Date of : 44 Report #: [id number] EXTREMITIES: Unremarkable with postoperative change involving the left ankle. LABORATORY STUDIES: CBC today shows a hemoglobin 13, WBC 23.8, platelet count 295,000, 94% segs, no bands. Blood cultures negative. Sodium 139, potassium 4.5, bicarbonate 28, creatinine 0.9. Liver function test normal. IMPRESSION: 1. Community-acquired pneumonia with history of aspiration. No organisms have been identified. 2. Leukocytosis, I suspect related to corticosteroids. 3. Previous throat cancer with aspiration risk. 4. Previous stroke. RECOMMENDATIONS: We will continue antibiotic coverage with Augmentin and tapers corticosteroids. Repeat CBC first of next week. I expect as the steroids are dropped, his white count should normalize. Repeat chest x-ray to clear. Continue with aspiration precautions and work with speech therapy. <ELECTRONICALLY SIGNED> By: Karan Fofana MD 03/12/18 [id number] [id number] Karan Fofana MD /nt
[2018-03-04 08:54] VITALS: BP 152/54
[2018-03-04 09:25] LABS: HEMATOCRIT 39.2 % (42.0-52.0); HEMOGLOBIN 12.7 gm/dL (14.0-18.0); MCH 30.1 pg (26.0-34.0); MCHC 32.4 g/dL (28.0-37.0); PLATELET COUNT 253 thou/uL (150-400); RBC 4.21 mil/uL (4.50-6.00); RDW 15.1 % (10.5-14.5); WBC 26.9 thou/uL (4.0-11.0)
[2018-03-04 09:31] LABS: BE(vivo) 0.7 mmol/L (-2 to +3); HCO3 26.1 mmol/L (22.0-26.0); PCO2 44.8 mmHg (35.0-45.0); PO2 65.5 mmHg (80.0-100.0); pH 7.383 (7.360-7.450); sO2 92.5 % (92.0-98.0)
[2018-03-04 09:31] LABS: ANION GAP 8 mmol/L (7-16); BUN 22 mg/dL (7-18); CALCIUM 9.1 mg/dL (8.5-10.1); CHLORIDE 100 mmol/L (98-107); CO2 28 mmol/L (21-32); CREATININE 1.6 mg/dL (0.7-1.3); GLUCOSE 175 mg/dL (74-106); POTASSIUM 4.3 mmol/L (3.5-5.1); SODIUM 136 mmol/L (136-145)
[2018-03-04 09:40] LABS: SGOT 28 U/L (15-37); SGPT 43 U/L (30-65); TOTAL BILIRUBIN 0.9 mg/dL (<0.1-1.0); TOTAL PROTEIN 7.2 g/dL (6.4-8.2); TROPONIN-I < 0.04 ng/mL (<0.06)
[2018-03-04 10:08] LABS: ABSOLUTE NEUTROPHILS 24.7 thou/uL (1.4-8.2); PLATELET ESTIMATE NORMAL
[2018-03-04 10:22] VITALS: BP 113/52
[2018-03-04 12:39] VITALS: BP 155/75
[2018-03-04 12:52] VITALS: BP 158/77
[2018-03-04] MEDS ORDERED: ELIQUIS5 MG PO (13:02)
[2018-03-04] MEDS ORDERED: VENTOLIN HFA 1818 GM INH (13:04)
[2018-03-04] MEDS ORDERED: OMEPRAZOLE 20 M20 M1 PO (13:06)
[2018-03-04] MEDS ORDERED: MAGOX 400400 MG PO (13:07)
[2018-03-04 13:23] LABS: TSH 1.148 uIU/mL (0.358-3.740)
[2018-03-04 16:00] VITALS: BP 144/70
[2018-03-04 22:08] VITALS: BP 170/73
[2018-03-05 03:41] VITALS: BP 141/71
[2018-03-05 05:09] LABS: ABSOLUTE NEUTROPHILS 13.5 thou/uL (1.4-8.2); HEMATOCRIT 37.6 % (42.0-52.0); HEMOGLOBIN 12.4 gm/dL (14.0-18.0); LYMPHOCYTES 3.6 % (24.0-44.0); MCH 30.8 pg (26.0-34.0); MCHC 33.1 g/dL (28.0-37.0); MCV 93.1 fL (80.0-100.0); MONOCYTES 0.7 % (1.0-8.0); PLATELET COUNT 243 thou/uL (150-400); POLYS 95.7 % (36.0-66.0); RBC 4.04 mil/uL (4.50-6.00); WBC 14.2 thou/uL (4.0-11.0)
[2018-03-05 05:40] LABS: CALCIUM 9.3 mg/dL (8.5-10.1); CREATININE 0.9 mg/dL (0.7-1.3); POTASSIUM 4.6 mmol/L (3.5-5.1)
[2018-03-05 08:20] VITALS: BP 109/58
[2018-03-05 16:19] VITALS: BP 128/67
[2018-03-05 19:41] VITALS: BP 157/67
[2018-03-06 03:37] VITALS: BP 134/64
[2018-03-06 05:46] LABS: ALBUMIN 2.4 g/dL (3.4-5.0); CALCIUM 8.7 mg/dL (8.5-10.1); CREATININE 0.9 mg/dL (0.7-1.3); POTASSIUM 4.5 mmol/L (3.5-5.1); TOTAL BILIRUBIN 0.5 mg/dL (<0.1-1.0); TOTAL PROTEIN 5.7 g/dL (6.4-8.2)
[2018-03-06 08:00] VITALS: BP 141/84
[2018-03-06 12:05] LABS: HEMATOCRIT 35.5 % (42.0-52.0); HEMOGLOBIN 11.3 gm/dL (14.0-18.0); MCH 30.2 pg (26.0-34.0); MCHC 31.8 g/dL (28.0-37.0); MCV 94.8 fL (80.0-100.0); PLATELET COUNT 248 thou/uL (150-400); RBC 3.74 mil/uL (4.50-6.00); RDW 15.5 % (10.5-14.5); WBC 25.9 thou/uL (4.0-11.0)
[2018-03-06 13:40] LABS: HEMATOCRIT 39.8 % (42.0-52.0); HEMOGLOBIN 12.9 gm/dL (14.0-18.0); MCH 30.2 pg (26.0-34.0); MCHC 32.4 g/dL (28.0-37.0); MCV 93.2 fL (80.0-100.0); RBC 4.26 mil/uL (4.50-6.00); RDW 15.5 % (10.5-14.5)
[2018-03-06 16:55] VITALS: BP 166/83
[2018-03-06 19:22] LABS: ANISOCYTOSIS 1+; POLYCHROMASIA OCCASIONAL
[2018-03-06 20:00] VITALS: BP 169/87
[2018-03-07 04:00] VITALS: BP 144/73
[2018-03-07 08:02] LABS: HEMATOCRIT 40.2 % (42.0-52.0); MCH 30.2 pg (26.0-34.0); MCHC 32.4 g/dL (28.0-37.0); MCV 93.4 fL (80.0-100.0); PLATELET COUNT 295 thou/uL (150-400); RDW 15.2 % (10.5-14.5); WBC 23.8 thou/uL (4.0-11.0)
[2018-03-07 08:17] LABS: ABSOLUTE NEUTROPHILS 22.4 thou/uL (1.4-8.2); ANISOCYTOSIS 1+
[2018-03-07 08:36] VITALS: BP 150/81
[2018-03-07] MEDS ORDERED: AUGMENTIN 875-1 EACH PO (10:24)
[2018-03-07] MEDS ORDERED: PREDNISONE 10 M10 MG PO (10:35)
[2018-03-07 11:04] VITALS: BP 150/81
== END 2018-03-07 12:28 | disposition home or self-care (01) | DRG 871 ==
LOC: ER 08:54 → 4W 10:33 → EROBS 10:33 → 4W 12:17 → ENTRNSPT 03-07 11:25 → EDTRNSPTSTS 03-07 11:27 → 4W 03-07 12:28
PROVIDERS: Internal Medicine; Nurse Practitioner; Physician Assistant; Specialist
DX: A41.9 Sepsis, unspecified organism (principal); J69.0 Pneumonitis due to inhalation of food and vomit; N17.9 Acute kidney failure, unspecified; I25.10 Atherosclerotic heart disease of native coronary artery without angina pectoris; I10 Essential (primary) hypertension; R09.02 Hypoxemia; E78.5 Hyperlipidemia, unspecified; E86.0 Dehydration; R13.10 Dysphagia, unspecified; J06.9 Acute upper respiratory infection, unspecified; I48.91 Unspecified atrial fibrillation; Z66 Do not resuscitate; Z85.46 Personal history of malignant neoplasm of prostate; Z79.899 Other long term (current) drug therapy; Z95.1 Presence of aortocoronary bypass graft; Z87.81 Personal history of (healed) traumatic fracture; Z85.810 Personal history of malignant neoplasm of tongue; Z86.73 Personal history of transient ischemic attack (TIA), and cerebral infarction without residual deficits; Z87.891 Personal history of nicotine dependence
CPT/HCPCS: 10045

== ENCOUNTER → 2018-04-17 | Outpatient (CLI) | payer OTHER ==
[~2018-04-17] MED LIST changes: +AUGMENTIN 875-1 EACH PO; +ELIQUIS5 MG PO; +MAGOX 400400 MG PO; +OMEPRAZOLE 20 M20 M1 PO; +PREDNISONE 10 M10 MG PO; +VENTOLIN HFA 1818 GM INH
== END ==
LOC: RAD 07:14 → SPEECH 07:14 → RAD 16:26
DX: R13.12 Dysphagia, oropharyngeal phase (principal)

== ENCOUNTER → 2018-06-24 | Outpatient (CLI) | payer OTHER | LOC: RAD 08:49 → SPEECH 08:49 → RAD 09:55 | DX: R13.12 Dysphagia, oropharyngeal phase (principal); I10 Essential (primary) hypertension; I25.10 Atherosclerotic heart disease of native coronary artery without angina pectoris; E78.00 Pure hypercholesterolemia, unspecified; J44.9 Chronic obstructive pulmonary disease, unspecified; Z87.891 Personal history of nicotine dependence ==

== ENCOUNTER → 2020-07-29 | Outpatient (CLI) | payer OTHER ==
[~2020-07-29] MED LIST changes: +ALLOPURINOL 10100 M3 PO; +ANORO ELLIPTA1 EACH INH; +ASA81BEC PO; +ESSENTIAL DAIL1 EACH PO; +LIPITOR40 MG PO; +PACERONE200 MG PO; +PRILOSEC OTC20 MG PO; +SINGULAIR 10 MG10 MG PO; +SYNTHROID75 MCG PO; +TOPROL XL25 MG PO
== END ==
LOC: LAB 08:34
PROVIDERS: ATTEND Internal Medicine Gastroenterology
DX: Z01.812 Encounter for preprocedural laboratory examination (principal); Z20.828 Contact with and (suspected) exposure to other viral communicable diseases

== ENCOUNTER → 2020-08-03 | Outpatient (CLI) | payer OTHER ==
[~2020-08-03] VITALS: Ht 180.3 cm; Wt 51.7 kg
--- NOTE | 2020-08-04 17:06 | PATH ---
[facility] [address] [address] PATHOLOGY RPT PROCEDURE Name: HARINDERPRAKASH YAÑEZ Room #: REG ERNAGio Perez.#: [id number] Admission: 08/03/20 Date of : 44 Discharge: Report #: [id number] Path Case #: [id number] [facility] Accession Number: [id number] . 01 Material submitted: . PART A: duodenum - BX OF DUODENUM PART B: stomach - BX OF ANTRUM . 01 Clinical history: . A. R/O CELIAC B. R/O H PYLORI IRON DEFICIENCY, ANEMIA, WEIGHT LOSS, DYSPHAGIA . 02 Diagnosis: A. Small bowel mucosa, duodenum, endoscopic biopsy: - No diagnostic abnormalities present. - Negative for villous blunting or increase in intraepithelial lymphocytes. . B. Gastric mucosa, antrum, endoscopic biopsy: - Mild reactive gastropathy. - Negative for intestinal metaplasia or atrophy. - Negative for Helicobacter pylori (properly controlled immunohistochemical stain performed). (IUV:mandie; 08/04/2020) QMS 08/04/2020 1423 Local . 02 Electronically signed: . Lisa Klein MD, Pathologist NPI- [id number] . 01 Gross description: . A. The specimen is received in formalin, labeled "Prakash Harinder, biopsy of duodenum, R/O celiac". Received is a segment of pale patiño soft tissue measuring 0.4 cm in maximum dimensions. The specimen is submitted entirely in cassette A1. . B. The specimen is received in formalin, labeled "Prakash Harinder, biopsy of antrum, R/O H. pylori". Received are two segments of pale patiño soft tissue ranging in size from 0.3 to 0.4 cm in maximum dimensions. The specimen is submitted entirely in cassette B1. (CAA; 08/03/2020) QAC/QA 08/03/2020 1546 Local . 02 Pathologist provided ICD-10: K31.9 . [address] [address] PATHOLOGY RPT PROCEDURE Name: PRAKASH FRIAS [place] Room #: REG [facility]#: [id number] Admission: 08/03/20 Date of : 44 Discharge: Report #: [id number] Path Case #: [id number] CPT . [id number], [id number], [id number] Specimen Comment: A courtesy copy of this report has been sent to [phone], [phone] Specimen Comment: [id number] Specimen Comment: Report sent to / DR ENRIQUEZ Performed at: [address], [place], [place] [id number] MD Duran Lynch MD Phone: [phone] Performed at: [address] [id number] MD Lisa Klein MD Phone: [phone]
== END | disposition home or self-care (01) ==
LOC: GI 07:44
PROVIDERS: ATTEND Internal Medicine Gastroenterology
DX: D50.9 Iron deficiency anemia, unspecified (principal); K57.30 Diverticulosis of large intestine without perforation or abscess without bleeding; K64.8 Other hemorrhoids; K22.2 Esophageal obstruction; K31.9 Disease of stomach and duodenum, unspecified; K44.9 Diaphragmatic hernia without obstruction or gangrene; R13.10 Dysphagia, unspecified; I25.10 Atherosclerotic heart disease of native coronary artery without angina pectoris; E03.9 Hypothyroidism, unspecified; E78.00 Pure hypercholesterolemia, unspecified; M10.9 Gout, unspecified; J44.9 Chronic obstructive pulmonary disease, unspecified; Z95.1 Presence of aortocoronary bypass graft; Z98.890 Other specified postprocedural states; Z79.899 Other long term (current) drug therapy; Z85.828 Personal history of other malignant neoplasm of skin; Z85.46 Personal history of malignant neoplasm of prostate; Z86.73 Personal history of transient ischemic attack (TIA), and cerebral infarction without residual deficits; Z85.89 Personal history of malignant neoplasm of other organs and systems
CPT/HCPCS: 62110; 62900

== ENCOUNTER → 2020-09-08 | Outpatient (CLI) | payer OTHER | LOC: SJCVC 09:36 | PROVIDERS: ATTEND Internal Medicine | DX: I25.10 Atherosclerotic heart disease of native coronary artery without angina pectoris (principal); R94.31 Abnormal electrocardiogram [ECG] [EKG]; R00.1 Bradycardia, unspecified; I45.10 Unspecified right bundle-branch block; I25.5 Ischemic cardiomyopathy; I48.0 Paroxysmal atrial fibrillation; I10 Essential (primary) hypertension; I47.2 Ventricular tachycardia; E78.5 Hyperlipidemia, unspecified; I65.23 Occlusion and stenosis of bilateral carotid arteries; Z95.810 Presence of automatic (implantable) cardiac defibrillator; Z79.899 Other long term (current) drug therapy; Z87.891 Personal history of nicotine dependence ==

== ENCOUNTER → 2021-03-28 | Outpatient (CLI) | payer OTHER, BC | LOC: SPEECH 13:45 → EDSTATUS 13:45 → SPEECH 13:56 | PROVIDERS: ATTEND Neuromusculoskeletal Medicine & OMM | DX: R13.12 Dysphagia, oropharyngeal phase (principal) ==

== ENCOUNTER → 2021-06-24 | Outpatient (CLI) | payer OTHER, BC | LOC: SJCVCIMAG 05-06 07:31 | PROVIDERS: ATTEND Internal Medicine | DX: I08.1 Rheumatic disorders of both mitral and tricuspid valves (principal); I65.23 Occlusion and stenosis of bilateral carotid arteries; I45.10 Unspecified right bundle-branch block; I49.3 Ventricular premature depolarization; I25.10 Atherosclerotic heart disease of native coronary artery without angina pectoris; I25.5 Ischemic cardiomyopathy; I48.0 Paroxysmal atrial fibrillation; I47.2 Ventricular tachycardia; E78.5 Hyperlipidemia, unspecified; I11.0 Hypertensive heart disease with heart failure; I50.9 Heart failure, unspecified; J44.9 Chronic obstructive pulmonary disease, unspecified; M10.9 Gout, unspecified; E78.00 Pure hypercholesterolemia, unspecified; Z95.1 Presence of aortocoronary bypass graft; Z95.810 Presence of automatic (implantable) cardiac defibrillator; Z79.82 Long term (current) use of aspirin; Z79.899 Other long term (current) drug therapy; Z87.891 Personal history of nicotine dependence; Z86.73 Personal history of transient ischemic attack (TIA), and cerebral infarction without residual deficits; Z82.49 Family history of ischemic heart disease and other diseases of the circulatory system ==

== ENCOUNTER → 2021-07-01 | Outpatient (CLI) | payer BC, OTHER ==
[2021-07-01 12:32] LABS: CREATININE 0.9 mg/dL (0.7-1.3)
== END ==
LOC: CAT 09:58
PROVIDERS: ATTEND Internal Medicine
DX: Z01.812 Encounter for preprocedural laboratory examination (principal); T17.908A Unspecified foreign body in respiratory tract, part unspecified causing other injury, initial encounter; C80.1 Malignant (primary) neoplasm, unspecified; I25.10 Atherosclerotic heart disease of native coronary artery without angina pectoris; J43.8 Other emphysema; R91.8 Other nonspecific abnormal finding of lung field; R63.4 Abnormal weight loss; X58.XXXA Exposure to other specified factors, initial encounter; Y93.89 Activity, other specified; Y92.89 Other specified places as the place of occurrence of the external cause; Y99.8 Other external cause status

== ENCOUNTER → 2021-09-26 | Outpatient (CLI) | payer BC, OTHER | LOC: SJCVC 10:48 | PROVIDERS: ATTEND Internal Medicine | DX: I25.10 Atherosclerotic heart disease of native coronary artery without angina pectoris (principal); I25.5 Ischemic cardiomyopathy; I48.0 Paroxysmal atrial fibrillation; I10 Essential (primary) hypertension; I47.2 Ventricular tachycardia; E78.5 Hyperlipidemia, unspecified; E78.00 Pure hypercholesterolemia, unspecified; R94.31 Abnormal electrocardiogram [ECG] [EKG]; I65.23 Occlusion and stenosis of bilateral carotid arteries; J44.9 Chronic obstructive pulmonary disease, unspecified; Z79.82 Long term (current) use of aspirin; Z79.899 Other long term (current) drug therapy; Z95.810 Presence of automatic (implantable) cardiac defibrillator; Z87.891 Personal history of nicotine dependence; Z82.49 Family history of ischemic heart disease and other diseases of the circulatory system ==

== ENCOUNTER 2021-10-22 20:39 | Emergency (ER) | payer BC, OTHER ==
[~2021-10-22] VITALS: Ht 180.3 cm; Wt 60.8 kg
[2021-10-22 22:47] VITALS: BP 123/71
== END 2021-10-22 22:40 | disposition home or self-care (01) ==
LOC: ER 20:39
DX: K94.23 Gastrostomy malfunction (principal); I25.10 Atherosclerotic heart disease of native coronary artery without angina pectoris; E03.9 Hypothyroidism, unspecified; E78.00 Pure hypercholesterolemia, unspecified; M10.9 Gout, unspecified; J44.9 Chronic obstructive pulmonary disease, unspecified; Z85.46 Personal history of malignant neoplasm of prostate; Z95.1 Presence of aortocoronary bypass graft; Z98.890 Other specified postprocedural states; Z79.51 Long term (current) use of inhaled steroids; Z79.82 Long term (current) use of aspirin; Z79.891 Long term (current) use of opiate analgesic; Z79.1 Long term (current) use of non-steroidal anti-inflammatories (NSAID); Z79.899 Other long term (current) drug therapy